=== PATIENT | male | born 1955 ===

== ENCOUNTER 2018-10-19 21:09 | Inpatient (IN) | payer OTHER ==
[2018-10-20] MEDS ORDERED: Sodium Chloride 0.9% 1,000 ML IV STA ×2 (02:05→04:25)
--- NOTE | 2018-10-20 02:07 | ED PDOC ---
HPI:Nausea, Vomiting, Diarrhea Time Seen by Provider: 10/20/18 01:45 Chief Complaint (Nursing): GI Problem Chief Complaint (Provider): vomiting, diarrhea History Per: Patient History/Exam Limitations: no limitations Onset/Duration Of Symptoms: Days (3) Current Symptoms Are (Timing): Still Present Associated Symptoms: Chills, Nausea, Vomiting, Diarrhea Additional History Per: Patient Additional Complaint(s): 63 y/o male presents for evaluation of vomiting and diarrhea x 3 days. Associated decreased appetite, generalized weakness, subjective fever. Patient also reports intermittent right arm pain x months; denies injury. Denies cough, congestion, chest pain, shortness of breath, palpitations, abdominal pain, recent travel, sick contacts. Past Medical History Reviewed: Historical Data, Nursing Documentation, Vital Signs Vital Signs: Last Vital Signs Temp 97.5 F L 10/19/18 23:22 Pulse 107 H 10/19/18 23:22 Resp 18 10/19/18 23:22 BP 120/73 10/19/18 23:22 Pulse Ox 95 10/19/18 23:22 - Medical History PMH: Asthma, CAD, HTN - Surgical History Surgical History: No Surg Hx - Family History Family History: States: No Known Family Hx - Living Arrangements Living Arrangements: With Family - Social History Current smoker - smoking cessation education provided: Yes (10cigarettes/day) - Home Medications Home Medications: Ambulatory Orders Medication Instructions Recorded Amoxicillin/Clavulanate [Augmentin 1 tab PO BID #28 tab 10/21/18 875 MG-125 MG] Azithromycin [Zithromax] 500 mg PO DAILY #14 tablet 10/21/18 - Allergies Allergies/Adverse Reactions: Allergies Allergy/AdvReac Type Severity Reaction Status Date / Time No Known Allergies Allergy Verified 10/19/18 23:35 Review of Systems ROS Statement: Except As Marked, All Systems Reviewed And Found Negative Constitutional: Positive for: Chills, Weakness Gastrointestinal: Positive for: Nausea, Vomiting, Diarrhea Physical Exam - Reviewed Nursing Documentation Reviewed: Yes Vital Signs Reviewed: Yes - Physical Exam Appears: Positive for: Well, Non-toxic, No Acute Distress Head Exam: Positive for: ATRAUMATIC, NORMAL INSPECTION, NORMOCEPHALIC Skin: Positive for: Normal Color Eye Exam: Positive for: Normal appearance ENT: Positive for: Normal ENT Inspection Neck: Positive for: Normal, Painless ROM Cardiovascular/Chest: Positive for: Regular Rate, Rhythm Respiratory: Positive for: Normal Breath Sounds Gastrointestinal/Abdominal: Positive for: Normal Exam, Bowel Sounds, Soft. Negative for: Tenderness Back: Positive for: Normal Inspection Extremity: Positive for: Normal ROM Neurologic/Psych: Positive for: Alert, Oriented (x3) - Laboratory Results Result Diagrams: 10/21/18 05:50 10/21/18 05:50 - ECG ECG: Positive for: Viewed By Me (reviewed by ED attending) ECG Rhythm: Positive for: Sinus Tachycardia O2 Sat by Pulse Oximetry: 95 - Progress ED Course And Treament: -cbc -cmp -lipase -influenza -urinalysis -ekg -IV NS bolus -IV zofran -CT abd/pelvis Lung mass noted on pan washer hand view ct abd/pelvis; CT chest ordered Case discussed with Dr. Hayden, who will endorse case to incoming day shift hospitalist team Disposition - Clinical Impression Clinical Impression: Gastroenteritis, Lung mass - Disposition Disposition Time: 06:00 Condition: FAIR
[2018-10-20 04:55] LABS: BLOOD UREA NITROGEN 36 mg/dl (9-20); GFR NON-AFRICAN AMERICAN > 60
[2018-10-20 04:56] LABS: ALBUMIN 3.8 g/dL (3.5-5.0); ALT/SGPT 37 U/L (21-72); AST/SGOT 36 U/L (17-59); LIPASE 21 U/L (23-300)
[2018-10-20] MEDS ORDERED: Sodium Chloride 0.9% 50 ML IV ONE (05:34)
[2018-10-20] MEDS ORDERED: Iohexol 300 100 ML IJ ONE (05:35)
[2018-10-20 05:41] LABS: BASO % 0.2 % (0.0-2.0); EOS % 0.1 % (0.0-4.0); HEMOGLOBIN 15.2 g/dL (12.0-18.0); LYMPH # 0.7 K/uL (1.0-4.3); LYMPH % 4.1 % (20.0-40.0); MEAN CELL VOLUME 85.3 fl (80.0-94.0); MEAN CORPUSCULAR HEMOGLOBIN 28.8 pg (27.0-31.0); MEAN CORPUSCULAR HGB CONC 33.7 g/dL (33.0-37.0); MEAN PLATELET VOLUME 8.5 fl (7.2-11.7); MONO # 1.9 K/uL (0.0-0.8); MONO % 11.3 % (0.0-10.0); NEUT # 13.9 K/uL (1.8-7.0); NEUT % 84.3 % (50.0-75.0); NRBC % 0.1 % (0.0-0.0); PLATELET COUNT 167 K/uL (130-400); RED CELL DISTRIBUTION WIDTH 14.5 % (11.5-14.5); WHITE BLOOD COUNT 16.5 K/uL (4.8-10.8)
[2018-10-20 05:42] LABS: BANDS 1 % (0-2); LYMPHOCYTE 5 % (20-50); MONOCYTE 13 % (0-10); NEUTROPHIL 81 % (42-75); PLATELET ESTIMATE NORMAL (NORMAL); TOTAL CELLS COUNTED 100
[2018-10-20 06:23] LABS: URINE BILIRUBIN SMALL (NEGATIVE); URINE BLOOD MODERATE (NEGATIVE); URINE CLARITY CLOUDY (Clear); URINE COLOR AMBER (YELLOW); URINE GLUCOSE (UA) NEGATIVE (NEGATIVE); URINE PROTEIN 100 mg/dL (NEGATIVE)
[2018-10-20 06:24] LABS: SQUAMOUS EPITHIAL 2 /hpf (0-5); URINE BACTERIA RARE (<OCC); URINE LEUKOCYTE ESTERASE LARGE Leu/uL (Negative)
[2018-10-20] MEDS ORDERED: Levalbuterol 1.25 MG/3 ML Inhal Soln UD INH PRN (06:40)
[2018-10-20] MEDS ORDERED: Levalbuterol 0.63 MG/3 ML Inhal Soln UD ONE (06:42)
[2018-10-20] MEDS ORDERED: Levalbuterol 0.63 MG/3 ML Inhal Soln UD INH PRN (06:48)
[2018-10-20] MEDS ORDERED: Sodium Chloride 3% for Inhalation 4 ML VIAL.NEB IH PRN (08:02)
--- NOTE | 2018-10-20 09:26 | CARD ---
APPROVED REPORT Date of service: 10/20/2018 EKG Measurement Heart [id number] <Conclusion> Sinus tachycardia Otherwise normal ECG
[2018-10-20] MEDS ORDERED: Vancomycin 1 g Inj ONE (10:51)
[2018-10-20] MEDS ORDERED: Piperacillin/Tazobact 3.375 gm Inj IVPB ONE (12:20)
--- NOTE | 2018-10-20 12:22 | CP.PCM.HP ---
<JefferyElaine cox - Last Filed: 10/20/18 14:41> History of Present Illness - History of Present Illness History of Present Illness: 63-year-old male with PMH of HTN, prediabetes/DM2, and Hypercholesterolemia presents with nausea, vomiting, weakness, subjective fever and diarrhea that began 3 days prior to presentation to ED. Vomiting is NBNB. Denies blood and mucous in stool. He did not eat anything out of the ordinary or at any restaurants prior to symptoms starting. He reports that he has not been on medication for any of his chronic conditions in a few months. 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 He has a mild chronic cough "sometimes" and was hospitalized once many years ago to a hospital in the [place] for asthma but denies any respiratory issues since. He denies bloody sputum, recent travel, weight loss, night sweats, difficulty breathing, SOB, and chest pain. 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 absent: Night Sweats, Weight Loss - EENT Eyes: absent: Change in Vision - Cardiovascular Cardiovascular: absent: Chest Pain, Dyspnea, Leg Edema - Respiratory Respiratory: Cough (as per HPI) - Gastrointestinal Gastrointestinal: Abdominal Pain (as per HPI), Diarrhea (as per HPI), Vomiting (as per HPI). absent: Coffee Ground Emesis, Hematemesis, Hematochezia, Melena - Genitourinary Genitourinary: absent: Dysuria - Musculoskeletal Musculoskeletal: absent: Abnormal Gait, Joint Swelling - Neurological Neurological: absent: Abnormal Gait, Dizziness, Frequent Falls Past Patient History - Past Social History Smoking Status: Light Smoker < 10 Cigarettes Daily Alcohol: None Drugs: Denies Home Situation {Lives}: With Family - CARDIAC Hx Hypertension: Yes - PULMONARY Hx Asthma: Yes - PSYCHIATRIC Hx Substance Use: No Meds Allergies/Adverse Reactions: Allergies Allergy/AdvReac Type Severity Reaction Status Date / Time No Known Allergies Allergy Verified 10/19/18 23:35 Physical Exam - Constitutional Appears: No Acute Distress - Head Exam Head Exam: NORMAL INSPECTION - Eye Exam Eye Exam: Normal appearance - ENT Exam ENT Exam: Mucous Membranes Moist, Normal Oropharynx - Neck Exam Neck exam: Positive for: Full Rom - Respiratory Exam Respiratory Exam: Wheezes (bilateral, expiratory, R>L), NORMAL BREATHING PATTERN - Cardiovascular Exam Cardiovascular Exam: REGULAR RHYTHM, +S1, +S2 - GI/Abdominal Exam GI & Abdominal Exam: Soft. absent: Distended, Guarding, Tenderness - Extremities Exam Extremities exam: Positive for: normal inspection. Negative for: pedal edema, tenderness - Neurological Exam Neurological exam: Alert, Normal Gait, Oriented x3 - Psychiatric Exam Psychiatric exam: Normal Affect, Normal Mood - Skin Skin Exam: Dry, Intact, Normal Color, Warm Results - Vital Signs Recent Vital Signs: Last Vital Signs Temp 99.3 F 10/20/18 11:00 Pulse 93 H 10/20/18 11:00 Resp 18 10/20/18 11:00 BP 120/76 10/20/18 11:00 Pulse Ox 95 10/20/18 11:00 - Labs Result Diagrams: 10/20/18 03:00 10/20/18 03:00 Labs: Laboratory Results - last 24 hr 10/20/18 10/20/18 10/20/18 02:00 02:30 03:00 WBC 16.5 H RBC 5.30 Hgb 15.2 Hct 45.2 MCV 85.3 MCH 28.8 MCHC 33.7 RDW 14.5 Plt Count 167 MPV 8.5 Neut % (Auto) 84.3 H Lymph % (Auto) 4.1 L [place] % (Auto) 11.3 H Eos % (Auto) 0.1 Baso % (Auto) 0.2 Neut # (Auto) 13.9 H Lymph # (Auto) 0.7 L [place] # (Auto) 1.9 H Eos # (Auto) 0.0 Baso # (Auto) 0.0 Neutrophils % (Manual) 81 H Band Neutrophils % 1 Lymphocytes % (Manual) 5 L Monocytes % (Manual) 13 H Platelet Estimate Normal Sodium Potassium Chloride Carbon Dioxide Anion Gap BUN Creatinine Est GFR ( Amer) Est GFR (Non-Af Amer) Random Glucose Calcium Total Bilirubin AST ALT Alkaline Phosphatase Total Protein Albumin Globulin Albumin/Globulin Ratio Lipase Urine Color Rosaura Urine Clarity Cloudy Urine pH 5.0 Ur Specific [place]cock 1.025 Urine Protein 100 Urine Glucose (UA) Negative Urine Ketones Negative Urine Blood Moderate Urine Nitrate Negative Urine Bilirubin Small Urine Urobilinogen 4.0 Ur Leukocyte Esterase Large Urine RBC (Auto) 10 H Urine Microscopic WBC 110 H Ur Squamous Epith Cells 2 Urine Bacteria Rare Hyaline Casts 6-10 H Influenza Typ A,B (EIA) Negative for flu a/b 10/20/18 03:00 WBC RBC Hgb Hct MCV MCH MCHC RDW Plt Count MPV Neut % (Auto) Lymph % (Auto) [place] % (Auto) Eos % (Auto) Baso % (Auto) Neut # (Auto) Lymph # (Auto) [place] # (Auto) Eos # (Auto) Baso # (Auto) Neutrophils % (Manual) Band Neutrophils % Lymphocytes % (Manual) Monocytes % (Manual) Platelet Estimate Sodium 134 Potassium 3.3 L Chloride 91 L Carbon Dioxide 30 Anion Gap 16 BUN 36 H Creatinine 1.1 Est GFR ( Amer) > 60 Est GFR (Non-Af Amer) > 60 Random Glucose 152 H Calcium 9.0 Total Bilirubin 1.1 AST 36 ALT 37 Alkaline Phosphatase 112 Total Protein 7.8 Albumin 3.8 Globulin 4.0 H Albumin/Globulin Ratio 1.0 Lipase 21 L Urine Color Urine Clarity Urine pH Ur Specific [place] Urine Protein Urine Glucose (UA) Urine Ketones Urine Blood Urine Nitrate Urine Bilirubin Urine Urobilinogen Ur Leukocyte Esterase Urine RBC (Auto) Urine Microscopic WBC Ur Squamous Epith Cells Urine Bacteria Hyaline Casts Influenza Typ A,B (EIA) Assessment & Plan - Assessment and Plan (Free Text) Assessment: 63-year-old male with PMH of HTN, DM2, and Hypercholesterolemia presents with nausea, vomiting, subjective fever and diarrhea that began 3 days prior to presentation to ED. In ED CT abdomen/pelvis showed lung mass vs. infiltrates; f/u CT abd pending final review. Plan: Pneumonia vs. Mass - CT abd/pelvis shows upper lobe infiltrate with possible mass - CT chest pending final review - Albuterol nebs - WBC 16.5 - Vanco 1gm Q12H - Zosyn 3.375 gm Q6H - Xopenex RQ8 PRN - Pulm consult pending CT findings - F/u blood culture - F/u sputum culture UTI - UA: WBC 110, Hyaline casts 6-10 - Abiotic noted above appropriate coverage - F/u urine culture Hx HTN - Pt on no medication - BP wnl, range 120's/70's - Monitor BP Hx Prediabetes/DM2 - Pt on no medication, unclear of diagnosis - Random glucose 152 - No HgA1C on file - Monitor DVT Prophylaxis - Lovenox 40mg <Jaramillo,Brayan D - Last Filed: 10/20/18 18:08> Results - Vital Signs Recent Vital Signs: Last Vital Signs Temp 98.2 F 10/20/18 16:06 Pulse 100 H 10/20/18 16:06 Resp 20 10/20/18 16:06 BP 122/79 10/20/18 16:06 Pulse Ox 92 L 10/20/18 16:06 - Labs Result Diagrams: 10/20/18 03:00 10/20/18 03:00 Labs: Laboratory Results - last 24 hr 10/20/18 10/20/18 10/20/18 02:00 02:30 03:00 WBC 16.5 H RBC 5.30 Hgb 15.2 Hct 45.2 MCV 85.3 MCH 28.8 MCHC 33.7 RDW 14.5 Plt Count 167 MPV 8.5 Neut % (Auto) 84.3 H Lymph % (Auto) 4.1 L [place] % (Auto) 11.3 H Eos % (Auto) 0.1 Baso % (Auto) 0.2 Neut # (Auto) 13.9 H Lymph # (Auto) 0.7 L [place] # (Auto) 1.9 H Eos # (Auto) 0.0 Baso # (Auto) 0.0 Neutrophils % (Manual) 81 H Band Neutrophils % 1 Lymphocytes % (Manual) 5 L Monocytes % (Manual) 13 H Platelet Estimate Normal Sodium Potassium Chloride Carbon Dioxide Anion Gap BUN Creatinine Est GFR ( Amer) Est GFR (Non-Af Amer) POC Glucose (mg/dL) Random Glucose Calcium Total Bilirubin AST ALT Alkaline Phosphatase Total Protein Albumin Globulin Albumin/Globulin Ratio Lipase Urine Color Rosaura Urine Clarity Cloudy Urine pH 5.0 Ur Specific [place] 1.025 Urine Protein 100 Urine Glucose (UA) Negative Urine Ketones Negative Urine Blood Moderate Urine Nitrate Negative Urine Bilirubin Small Urine Urobilinogen 4.0 Ur Leukocyte Esterase Large Urine RBC (Auto) 10 H Urine Microscopic WBC 110 H Ur Squamous Epith Cells 2 Urine Bacteria Rare Hyaline Casts 6-10 H Influenza Typ A,B (EIA) Negative for flu a/b Ur L.pneumophila Ag 10/20/18 10/20/18 10/20/18 03:00 08:30 16:37 WBC RBC Hgb Hct MCV MCH MCHC RDW Plt Count MPV Neut % (Auto) Lymph % (Auto) [place] % (Auto) Eos % (Auto) Baso % (Auto) Neut # (Auto) Lymph # (Auto) [place] # (Auto) Eos # (Auto) Baso # (Auto) Neutrophils % (Manual) Band Neutrophils % Lymphocytes % (Manual) Monocytes % (Manual) Platelet Estimate Sodium 134 Potassium 3.3 L Chloride 91 L Carbon Dioxide 30 Anion Gap 16 BUN 36 H Creatinine 1.1 Est GFR ( Amer) > 60 Est GFR (Non-Af Amer) > 60 POC Glucose (mg/dL) 114 H Random Glucose 152 H Calcium 9.0 Total Bilirubin 1.1 AST 36 ALT 37 Alkaline Phosphatase 112 Total Protein 7.8 Albumin 3.8 Globulin 4.0 H Albumin/Globulin Ratio 1.0 Lipase 21 L Urine Color Urine Clarity Urine pH Ur Specific [place] Urine Protein Urine Glucose (UA) Urine Ketones Urine Blood Urine Nitrate Urine Bilirubin Urine Urobilinogen Ur Leukocyte Esterase Urine RBC (Auto) Urine Microscopic WBC Ur Squamous Epith Cells Urine Bacteria Hyaline Casts Influenza Typ A,B (EIA) Ur L.pneumophila Ag Negative Attending/Attestation - Attestation I have personally seen and examined this patient.: Yes I have fully participated in the care of the patient.: Yes I have reviewed all pertinent clinical information: Yes Notes (Text): 10/20/18 18:07 Patient seen and examined with resident. Case discussed and agreed with assessment and plan of management
[2018-10-20] MEDS: Piperacillin/Tazobact 3.375 GM in Sodium Chloride 0.9% 100 ML IVPB SCH ×2 (12:46→21:28)
--- NOTE | 2018-10-20 15:44 | CT ---
Date of service: 10/20/2018 PROCEDURE: CT Chest without contrast HISTORY: lung mass COMPARISON: None available. TECHNIQUE: Contiguous axial images were obtained through the chest without intravenous contrast enhancement. Sagittal and coronal reconstructions were performed. Radiation dose: Total exam DLP = 521.25 mGy-cm. This CT exam was performed using one or more of the following dose reduction techniques: Automated exposure control, adjustment of the mA and/or kV according to patient size, and/or use of iterative reconstruction technique. FINDINGS: LUNGS: Dense consolidative changes primarily affecting posterior segment right upper lobe. No visible endobronchial lesion or occlusive disease within the tracheobronchial tree. Less pronounced changes identified centrally right middle and right lower lobes with there is bronchial thickening as well. No discrete pulmonary nodules or masses. Underlying manifestations of COPD. MEDIASTINUM: Unremarkable thoracic aorta. No aneurysm. Normal sized heart. Main pulmonary artery unremarkable. No vascular congestion. Mediastinal/paratracheal lymphadenopathy. Largest jos mass 1.7 x 2 cm. No aortic atherosclerotic calcification. PLEURA: No pleural fluid. No pneumothorax. BONES: No fracture. No destructive lesion. UPPER ABDOMEN: Simple cyst right hepatic lobe 1.4 x 2 cm. Underlying hepatic steatosis. OTHER FINDINGS: None. IMPRESSION: 1. Pulmonary parenchymal, alveolar infiltrate right upper lobe likely pneumonia. 2. Underlying bronchitic changes. Emphysematous changes noted as well. 3. Mediastinal lymphadenopathy described above. Assessment of hepatic lymph nodes difficult in the absence of intravenous contrast. 4. Additional benign and/or incidental findings described above. Concordant results (preliminary interpretation) provided by [employer]. Procedure Completed: 06:09. Preliminary Report: Dictated and Authenticated: 07:17. Final Interpretation: 15:40. October 20, 2018
--- NOTE | 2018-10-20 15:52 | CT ---
Date of service: 10/20/2018 PROCEDURE: CT Abdomen and Pelvis with contrast HISTORY: vomiting, diarrhea, uti COMPARISON: None. TECHNIQUE: Contrast dose: Not available 95 mL Omnipaque 300 Radiation dose: Total exam DLP = 709.44 mGy-cm. This CT exam was performed using one or more of the following dose reduction techniques: Automated exposure control, adjustment of the mA and/or kV according to patient size, and/or use of iterative reconstruction technique. FINDINGS: LOWER THORAX: No infiltrate. No effusion. LIVER: Normal size, contour and attenuation. Nonspecific 1.9 cm rounded low-attenuation lesion in the anterior superior right hepatic lobe. No other mass. No biliary dilatation. GALLBLADDER AND BILE DUCTS: Unremarkable. PANCREAS: Unremarkable. No gross lesion or ductal dilatation. SPLEEN: Unremarkable. ADRENALS: Unremarkable. No mass. KIDNEYS AND URETERS: No renal mass, calculus or hydronephrosis. Minimal bilateral perinephric fat stranding. Possible lower pole cortical scarring left kidney. Small calcification in left lower pole kidney, possibly dystrophic. Unlikely collecting system calcification VASCULATURE: Unremarkable. No aortic aneurysm. There is atherosclerotic calcification of the abdominal aorta. BOWEL: Sigmoid diverticulosis. Mural thickening of the sigmoid colon likely due to chronic muscularis hypertrophy. There are scattered diverticula elsewhere throughout the colon. No evidence of diverticulitis. No bowel obstruction. No other abnormal bowel loops. APPENDIX: Normal appendix. PERITONEUM: Probable right Bochdalek's hernia containing only retroperitoneal fat. LYMPH NODES: Unremarkable. No enlarged lymph nodes. BLADDER: Unremarkable. REPRODUCTIVE: Normal prostate BONES: No acute fracture. OTHER FINDINGS: None. IMPRESSION: Sigmoid diverticulosis without evidence of diverticulitis. Probable old cortical scarring lower pole left kidney. No acute abnormality. Minor findings as above. The preliminary findings for this examination were reported by [facility] at 7:10 a.m. on 10/20/2018. There is concurrence of this report with the preliminary findings.
[2018-10-20] MEDS ORDERED: Dextrose 50% SYRINGE Inj (50 ml) IV PRN (19:27)
[2018-10-20] MEDS ORDERED: Glucagon Recombinant 1 mg Inj IM PRN (19:27)
[2018-10-20] MEDS: Insulin Regular 100 units/ml SC SCH (22:20)
[2018-10-21] MEDS: Piperacillin/Tazobact 3.375 GM in Sodium Chloride 0.9% 100 ML IVPB SCH ×2 (04:34→09:23)
[2018-10-21 06:32] LABS: BASO % 0.2 % (0.0-2.0); EOS # 0.1 K/uL (0.0-0.7); EOS % 0.5 % (0.0-4.0); HEMOGLOBIN 13.3 g/dL (12.0-18.0); LYMPH % 10.3 % (20.0-40.0); MEAN CELL VOLUME 86.5 fl (80.0-94.0); MEAN CORPUSCULAR HEMOGLOBIN 28.6 pg (27.0-31.0); MEAN CORPUSCULAR HGB CONC 33.1 g/dL (33.0-37.0); MEAN PLATELET VOLUME 8.2 fl (7.2-11.7); MONO # 1.1 K/uL (0.0-0.8); MONO % 11.2 % (0.0-10.0); NEUT # 7.9 K/uL (1.8-7.0); NEUT % 77.8 % (50.0-75.0); NRBC % 0.1 % (0.0-0.0); RBC 4.65 Mil/uL (4.40-5.90); WHITE BLOOD COUNT 10.1 K/uL (4.8-10.8)
[2018-10-21 06:37] LABS: BLOOD UREA NITROGEN 25 mg/dl (9-20); CALCIUM 8.5 mg/dL (8.4-10.2); GFR NON-AFRICAN AMERICAN > 60
[2018-10-21] MEDS: Insulin Regular 100 units/ml SC SCH ×2 (08:07→13:41)
[2018-10-21 08:59] VITALS: BP 114/62; PULSE 94; RESP 22; TEMP 99; O2SAT 93
[2018-10-21] MEDS ORDERED: Azithromycin 500 MG in Sodium Chloride 0.9% 250 ML IVPB SCH (09:00)
[2018-10-21] MEDS ORDERED: Enoxaparin 40 mg Syringe SC SCH (09:00)
[2018-10-21] MEDS ORDERED: Influenza Vaccine (5 YR UP)/PF 60 MCG/0.5 ML SYR IM ONE (09:00)
[2018-10-21] MEDS ORDERED: Pneumococcal 23-Valent Vaccine IM ONE (09:00)
--- NOTE | 2018-10-21 10:59 | CP.PCM.DIS ---
<Elaine Ibarra - Last Filed: 10/21/18 13:35> Provider - Provider Date of Admission: 10/20/18 06:02 Attending physician: Tracy Hayden DO Time Spent in preparation of Discharge (in minutes): 25 Diagnosis - Discharge Diagnosis (1) Pneumonia Status: Acute (2) Gastroenteritis Status: Acute Hospital Course - Lab Results Lab Results: Micro Results 10/20/18 08:30 Blood-Venous Blood Culture - Preliminary NO GROWTH AFTER 24 HOURS Most Recent Lab Values WBC 10.1 K/uL (4.8-10.8) 10/21/18 05:50 RBC 4.65 Mil/uL (4.40-5.90) 10/21/18 05:50 Hgb 13.3 g/dL (12.0-18.0) 10/21/18 05:50 Hct 40.3 % (35.0-51.0) 10/21/18 05:50 MCV 86.5 fl (80.0-94.0) 10/21/18 05:50 MCH 28.6 pg (27.0-31.0) 10/21/18 05:50 MCHC 33.1 g/dL (33.0-37.0) 10/21/18 05:50 RDW 15.0 % (11.5-14.5) H 10/21/18 05:50 Plt Count 171 K/uL (130-400) 10/21/18 05:50 MPV 8.2 fl (7.2-11.7) 10/21/18 05:50 Neut % (Auto) 77.8 % (50.0-75.0) H 10/21/18 05:50 Lymph % (Auto) 10.3 % (20.0-40.0) L 10/21/18 05:50 Andrews % (Auto) 11.2 % (0.0-10.0) H 10/21/18 05:50 Eos % (Auto) 0.5 % (0.0-4.0) 10/21/18 05:50 Baso % (Auto) 0.2 % (0.0-2.0) 10/21/18 05:50 Neut # (Auto) 7.9 K/uL (1.8-7.0) H 10/21/18 05:50 Lymph # (Auto) 1.0 K/uL (1.0-4.3) 10/21/18 05:50 Andrews # (Auto) 1.1 K/uL (0.0-0.8) H 10/21/18 05:50 Eos # (Auto) 0.1 K/uL (0.0-0.7) 10/21/18 05:50 Baso # (Auto) 0.0 K/uL (0.0-0.2) 10/21/18 05:50 Neutrophils % (Manual) 81 % (42-75) H 10/20/18 03:00 Band Neutrophils % 1 % (0-2) 10/20/18 03:00 Lymphocytes % (Manual) 5 % (20-50) L 10/20/18 03:00 Monocytes % (Manual) 13 % (0-10) H 10/20/18 03:00 Platelet Estimate Normal (NORMAL) 10/20/18 03:00 Sodium 137 mmol/l (132-148) 10/21/18 05:50 Potassium 3.9 MMOL/L (3.6-5.0) 10/21/18 05:50 Chloride 93 mmol/L (98-107) L 10/21/18 05:50 Carbon Dioxide 37 mmol/L (22-30) H 10/21/18 05:50 Anion Gap 11 (10-20) 10/21/18 05:50 BUN 25 mg/dl (9-20) H 10/21/18 05:50 Creatinine 1.0 mg/dl (0.8-1.5) 10/21/18 05:50 Est GFR ( Amer) > 60 10/21/18 05:50 Est GFR (Non-Af Amer) > 60 10/21/18 05:50 POC Glucose (mg/dL) 110 mg/dL (65-110) 10/21/18 05:34 Random Glucose 113 mg/dL (75-110) H 10/21/18 05:50 Calcium 8.5 mg/dL (8.4-10.2) 10/21/18 05:50 Total Bilirubin 1.1 mg/dl (0.2-1.3) 10/20/18 03:00 AST 36 U/L (17-59) 10/20/18 03:00 ALT 37 U/L (21-72) 10/20/18 03:00 Alkaline Phosphatase 112 U/L (38-126) 10/20/18 03:00 Total Protein 7.8 G/DL (6.3-8.2) 10/20/18 03:00 Albumin 3.8 g/dL (3.5-5.0) 10/20/18 03:00 Globulin 4.0 gm/dL (2.2-3.9) H 10/20/18 03:00 Albumin/Globulin Ratio 1.0 (1.0-2.1) 10/20/18 03:00 Lipase 21 U/L (23-300) L 10/20/18 03:00 Urine Color Rosaura (YELLOW) 10/20/18 02:30 Urine Clarity Cloudy (Clear) 10/20/18 02:30 Urine pH 5.0 (5.0-8.0) 10/20/18 02:30 Ur Specific [place] 1.025 (1.003-1.030) 10/20/18 02:30 Urine Protein 100 mg/dL (NEGATIVE) 10/20/18 02:30 Urine Glucose (UA) Negative mg/dL (NEGATIVE) 10/20/18 02:30 Urine Ketones Negative mg/dL (NEGATIVE) 10/20/18 02:30 Urine Blood Moderate (NEGATIVE) 10/20/18 02:30 Urine Nitrate Negative (NEGATIVE) 10/20/18 02:30 Urine Bilirubin Small (NEGATIVE) 10/20/18 02:30 Urine Urobilinogen 4.0 mg/dL (0.2-1.0) 10/20/18 02:30 Ur Leukocyte Esterase Large Lori/uL (Negative) 10/20/18 02:30 Urine RBC (Auto) 10 /hpf (0-3) H 10/20/18 02:30 Urine Microscopic WBC 110 /hpf (0-5) H 10/20/18 02:30 Ur Squamous Epith Cells 2 /hpf (0-5) 10/20/18 02:30 Urine Bacteria Rare (<OCC) 10/20/18 02:30 Hyaline Casts 6-10 /hpf (0-2) H 10/20/18 02:30 Influenza Typ A,B (EIA) Negative for flu a/b (NEGATIVE) 10/20/18 02:00 Ur L.pneumophila Ag Negative (NEGATIVE) 10/20/18 08:30 - Hospital Course Hospital Course: 63-year-old male with PMH of HTN, prediabetes/DM2, and Hypercholesterolemia presents with nausea, vomiting, weakness, subjective fever and diarrhea that beg an 3 days prior to presentation to ED. CT abd/pelvis (10/20/18): upper lobe infiltrate with possible mass CT Chest (10/21/18): pulmonary parenchymal, alveolar infiltrate right upper lobe likely pneumonia. Underlying bronchitic changes. Emphysematous changes noted as well. UA: WBC 110, Hyaline casts 6-10 WBC 16.5 Patient's gastroenteritis symptoms resolved during admission. Patient treated for pneumonia with Vanco 1gm Q12H, Zosyn 3.375 gm Q6H, which also provided coverage for his UTI. Patient was vitally stable throughout stay. PTB was not included in the differential diagnosis of this patient and presented with no risk factor of getting it. Sputum culture was placed as routine order for pneumonia but unfortunately included AFB in error. Patient remained vitally stable throughout admission. He denied dizziness, night sweats, weight loss, recent travel, hemoptysis, dysuria, chest pain, shortness of breath, and weakness. Discharge Exam - Head Exam Head Exam: NORMAL INSPECTION - Eye Exam Eye Exam: Normal appearance - ENT Exam ENT Exam: Mucous Membranes Moist - Neck Exam Neck exam: Normal Inspection - Respiratory Exam Respiratory Exam: Wheezes (expiratory, minimal, improved from yesterday), NORMAL BREATHING PATTERN - Cardiovascular Exam Cardiovascular Exam: REGULAR RHYTHM, +S1, +S2 - GI/Abdominal Exam GI & Abdominal Exam: Normal Bowel Sounds, Soft. absent: Tenderness - Neurological Exam Neurological exam: Alert, Normal Gait, Oriented x3 - Psychiatric Exam Psychiatric exam: Normal Affect, Normal Mood - Skin Skin Exam: Dry, Intact, Normal Color, Warm Discharge Plan - Discharge Medications Prescriptions: Amoxicillin/Clavulanate [Augmentin 875 MG-125 MG] 1 tab PO BID #28 tab Azithromycin [Zithromax] 500 mg PO DAILY #14 tablet - Follow Up Plan Condition: FAIR Disposition: HOME/ ROUTINE Instructions: Pneumonia, Adult (DC) Additional Instructions: follow up appt. in the clinic on 11/01/18 at 3:40pm with Referrals: [facility] [Outside] <Brayan Jaramillo - Last Filed: 10/21/18 18:01> Provider - Provider Date of Admission: 10/20/18 06:02 Attending physician: Tracy Hayden DO Hospital Course - Lab Results Lab Results: Micro Results 10/20/18 08:30 Blood-Venous Blood Culture - Preliminary NO GROWTH AFTER 24 HOURS Most Recent Lab Values WBC 10.1 K/uL (4.8-10.8) 10/21/18 05:50 RBC 4.65 Mil/uL (4.40-5.90) 10/21/18 05:50 Hgb 13.3 g/dL (12.0-18.0) 10/21/18 05:50 Hct 40.3 % (35.0-51.0) 10/21/18 05:50 MCV 86.5 fl (80.0-94.0) 10/21/18 05:50 MCH 28.6 pg (27.0-31.0) 10/21/18 05:50 MCHC 33.1 g/dL (33.0-37.0) 10/21/18 05:50 RDW 15.0 % (11.5-14.5) H 10/21/18 05:50 Plt Count 171 K/uL (130-400) 10/21/18 05:50 MPV 8.2 fl (7.2-11.7) 10/21/18 05:50 Neut % (Auto) 77.8 % (50.0-75.0) H 10/21/18 05:50 Lymph % (Auto) 10.3 % (20.0-40.0) L 10/21/18 05:50 Andrews % (Auto) 11.2 % (0.0-10.0) H 10/21/18 05:50 Eos % (Auto) 0.5 % (0.0-4.0) 10/21/18 05:50 Baso % (Auto) 0.2 % (0.0-2.0) 10/21/18 05:50 Neut # (Auto) 7.9 K/uL (1.8-7.0) H 10/21/18 05:50 Lymph # (Auto) 1.0 K/uL (1.0-4.3) 10/21/18 05:50 Andrews # (Auto) 1.1 K/uL (0.0-0.8) H 10/21/18 05:50 Eos # (Auto) 0.1 K/uL (0.0-0.7) 10/21/18 05:50 Baso # (Auto) 0.0 K/uL (0.0-0.2) 10/21/18 05:50 Neutrophils % (Manual) 81 % (42-75) H 10/20/18 03:00 Band Neutrophils % 1 % (0-2) 10/20/18 03:00 Lymphocytes % (Manual) 5 % (20-50) L 10/20/18 03:00 Monocytes % (Manual) 13 % (0-10) H 10/20/18 03:00 Platelet Estimate Normal (NORMAL) 10/20/18 03:00 Sodium 137 mmol/l (132-148) 10/21/18 05:50 Potassium 3.9 MMOL/L (3.6-5.0) 10/21/18 05:50 Chloride 93 mmol/L (98-107) L 10/21/18 05:50 Carbon Dioxide 37 mmol/L (22-30) H 10/21/18 05:50 Anion Gap 11 (10-20) 10/21/18 05:50 BUN 25 mg/dl (9-20) H 10/21/18 05:50 Creatinine 1.0 mg/dl (0.8-1.5) 10/21/18 05:50 Est GFR ( Amer) > 60 10/21/18 05:50 Est GFR (Non-Af Amer) > 60 10/21/18 05:50 POC Glucose (mg/dL) 236 mg/dL (65-110) H 10/21/18 10:50 Random Glucose 113 mg/dL (75-110) H 10/21/18 05:50 Calcium 8.5 mg/dL (8.4-10.2) 10/21/18 05:50 Total Bilirubin 1.1 mg/dl (0.2-1.3) 10/20/18 03:00 AST 36 U/L (17-59) 10/20/18 03:00 ALT 37 U/L (21-72) 10/20/18 03:00 Alkaline Phosphatase 112 U/L (38-126) 10/20/18 03:00 Total Protein 7.8 G/DL (6.3-8.2) 10/20/18 03:00 Albumin 3.8 g/dL (3.5-5.0) 10/20/18 03:00 Globulin 4.0 gm/dL (2.2-3.9) H 10/20/18 03:00 Albumin/Globulin Ratio 1.0 (1.0-2.1) 10/20/18 03:00 Lipase 21 U/L (23-300) L 10/20/18 03:00 Urine Color Rosaura (YELLOW) 10/20/18 02:30 Urine Clarity Cloudy (Clear) 10/20/18 02:30 Urine pH 5.0 (5.0-8.0) 10/20/18 02:30 Ur Specific [place] 1.025 (1.003-1.030) 10/20/18 02:30 Urine Protein 100 mg/dL (NEGATIVE) 10/20/18 02:30 Urine Glucose (UA) Negative mg/dL (NEGATIVE) 10/20/18 02:30 Urine Ketones Negative mg/dL (NEGATIVE) 10/20/18 02:30 Urine Blood Moderate (NEGATIVE) 10/20/18 02:30 Urine Nitrate Negative (NEGATIVE) 10/20/18 02:30 Urine Bilirubin Small (NEGATIVE) 10/20/18 02:30 Urine Urobilinogen 4.0 mg/dL (0.2-1.0) 10/20/18 02:30 Ur Leukocyte Esterase Large Lori/uL (Negative) 10/20/18 02:30 Urine RBC (Auto) 10 /hpf (0-3) H 10/20/18 02:30 Urine Microscopic WBC 110 /hpf (0-5) H 10/20/18 02:30 Ur Squamous Epith Cells 2 /hpf (0-5) 10/20/18 02:30 Urine Bacteria Rare (<OCC) 10/20/18 02:30 Hyaline Casts 6-10 /hpf (0-2) H 10/20/18 02:30 Influenza Typ A,B (EIA) Negative for flu a/b (NEGATIVE) 10/20/18 02:00 Ur L.pneumophila Ag Negative (NEGATIVE) 10/20/18 08:30 Attending/Attestation - Attestation I have personally seen and examined this patient.: Yes I have fully participated in the care of the patient.: Yes I have reviewed all pertinent clinical information, including history, physical exam and plan: Yes Notes (Text): 10/21/18 17:59 Patient seen and examined with resident. Case discussed and agreed with assessment. Patient was sent home with PO Augmentin 875/125 and Zithromax. [facility] follow [facility] in [facility].
== END 2018-10-21 14:32 | disposition home or self-care (01) | DRG 249 ==
LOC: H.ER 21:09 → H.ERHOLD 10-20 06:02 → H.MEDSURG1 10-20 14:54
PROVIDERS: ADMIT Student in an Organized Health Care Education/Training Program; ATTEND Student in an Organized Health Care Education/Training Program
PROC: 3E02340 Introduction of Influenza Vaccine into Muscle, Percutaneous Approach (ICD-10-PCS; principal; 2018-10-21)
PROC: 3E0234Z Introduction of Serum, Toxoid and Vaccine into Muscle, Percutaneous Approach (ICD-10-PCS; 2018-10-21)
DX: K52.9 Noninfective gastroenteritis and colitis, unspecified (principal); J18.9 Pneumonia, unspecified organism; N39.0 Urinary tract infection, site not specified; I10 Essential (primary) hypertension; E11.9 Type 2 diabetes mellitus without complications; E78.00 Pure hypercholesterolemia, unspecified; I25.10 Atherosclerotic heart disease of native coronary artery without angina pectoris; J45.909 Unspecified asthma, uncomplicated; F17.210 Nicotine dependence, cigarettes, uncomplicated; Z23 Encounter for immunization